=== PATIENT | female | born 1950 | race Caucasian/White ===

== ENCOUNTER 2019-03-12 15:43 | Emergency (ER) | payer MEDICARE ==
[~2019-03-12] VITALS: Ht 172.7 cm; Wt 69.0 kg
[~2019-03-12 15:43] MED LIST: CHOL10002 PO; ESTROGEN; NIAC500 PO; OMEP20ER PO; PROGESTERONE; PROZAC20 MG PO
== END 2019-03-12 16:46 | disposition home or self-care (01) ==
LOC: ER 15:43
DX: S01.01XA Laceration without foreign body of scalp, initial encounter (principal); E11.9 Type 2 diabetes mellitus without complications; K21.9 Gastro-esophageal reflux disease without esophagitis; Z88.8 Allergy status to other drugs, medicaments and biological substances; Z88.0 Allergy status to penicillin; Z79.899 Other long term (current) drug therapy; W22.8XXA Striking against or struck by other objects, initial encounter
CPT/HCPCS: 12002; 99282-25

== ENCOUNTER 2019-03-22 09:22 | Emergency (ER) | payer MEDICARE, OTHER ==
[~2019-03-22] VITALS: Ht 152.4 cm; Wt 69.0 kg
== END 2019-03-22 10:30 | disposition home or self-care (01) ==
LOC: ER 09:22
DX: S01.01XD Laceration without foreign body of scalp, subsequent encounter (principal); Z88.0 Allergy status to penicillin; Z88.8 Allergy status to other drugs, medicaments and biological substances; Z79.899 Other long term (current) drug therapy

== ENCOUNTER → 2021-09-05 | Outpatient (CLI) | payer MEDICARE | END | disposition home or self-care (01) | LOC: LAB SHORT 11:05 → PLD 11:05 | DX: C44.01 Basal cell carcinoma of skin of lip (principal) | CPT/HCPCS: 88305 ==